=== PATIENT | male | born 1995 | race Hispanic/Latino ===

== ENCOUNTER 2025-06-05 08:23 | Emergency (ER) | payer SELFPAY ==
[~2025-06-05] VITALS: Ht 160 cm; Wt 141.5 kg
--- NOTE | 2025-06-05 09:05 | NUR ---
[facility] CALLED FOR ASSUALT REPORT
--- NOTE | 2025-06-05 09:36 | NUR ---
[facility] officer katlin henao
--- NOTE | 2025-06-05 09:56 | HMCIMG ---
EXAM: CR left Clavicle Complete, 2 Views. CLINICAL HISTORY: Injury COMPARISON: None provided. FINDINGS: BONES: No acute fracture or aggressively appearing osseous lesion. Anterior dislocation of the left humerus head. JOINTS: The joint spaces are normal. SOFT TISSUES: The soft tissues are unremarkable. IMPRESSION: Anterior dislocation of the left humerus head. No evidence of fracture of the left clavicle /[place]
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
--- NOTE | 2025-06-05 11:03 | NUR ---
REFER TO CONSCIOUS SEDATION FOR FURTHER DOCUMENTATION ON LEFT SHOULDER REDUCTION. PLACED LEFT UPPER EXTREMITY SLING POST REDUCTION.
--- NOTE | 2025-06-05 11:04 | NUR ---
ANAYA PRINCE ([phone]). Addendum: 06/05/25 at 1240 by EARL ANAYA PRINCE ).
--- NOTE | 2025-06-05 11:27 | HMCIMG ---
EXAM CR Left Shoulder, 1 View CLINICAL HISTORY Status post reduction of left shoulder dislocation TECHNIQUE Single frontal view of the left shoulder COMPARISON Prior left shoulder radiographs from earlier on 06/05/2025 FINDINGS BONES No acute fracture is identified in the left shoulder. No aggressive appearing osseous lesion is seen. The visualized clavicle, scapula, and proximal humerus appear intact. JOINTS Previously documented anterior subcoracoid glenohumeral joint dislocation now shows anatomic alignment of the humeral head with the glenoid following reduction. The acromioclavicular joint appears maintained. No significant degenerative changes are evident on this limited single view. SOFT TISSUES The periarticular soft tissues are unremarkable. No soft tissue calcifications or radiopaque foreign bodies are identified. IMPRESSION * Successful reduction of previously anterior subcoracoid glenohumeral joint dislocation, with anatomic alignment on the current study. * No acute fracture identified. /[place]
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
[2025-06-05] MEDS ORDERED: KETO10 PO (12:31)
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
[2025-06-05 13:07] VITALS: BP 115/63; PULSE 78; RESP 18; TEMP 97.5; O2SAT 99
== END 2025-06-05 13:05 | disposition home or self-care (01) ==
LOC: EDH 08:23
DX: S43.015A Anterior dislocation of left humerus, initial encounter (principal); S80.02XA Contusion of left knee, initial encounter; S00.81XA Abrasion of other part of head, initial encounter; I10 Essential (primary) hypertension; Z90.49 Acquired absence of other specified parts of digestive tract; Y04.0XXA Assault by unarmed brawl or fight, initial encounter; Y93.89 Activity, other specified; Y92.89 Other specified places as the place of occurrence of the external cause; Y99.8 Other external cause status
CPT/HCPCS: 99285; 23650; 70450; 96374; 96375; 73000; 73030 ×2; 73564; 70486; J1885; J2270; J2704; J2405; J3490